=== PATIENT | male | born 2000 | race Caucasian/White ===

== ENCOUNTER 2024-09-13 14:31 | Emergency (ER) | payer OTHER, BC, SELFPAY ==
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
[2024-09-13 14:58] VITALS: BP 146/68; PULSE 99; RESP 16; TEMP 36.4; O2SAT 100
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
--- OUTSIDE RECORDS SUMMARY | 2024-09-13 17:46 | XMS_ITS | Continuity of Care Document ---
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 Name Role Phone Malik Mercado MD Unavailable Unavailable Medications Medication Instructions Dosage Effective Dates (start - stop) Status Comments TYLENOL 160MG/5MLELIXIR surgery 11/30 - Active Procedures Procedure Date Office/outpatient visit,[facility] 2007 X-ray exam of forearm, 2[facility] 8 X-ray exam of forearm, 2views 8 Office/outpatient visit,[facility] 2007 X-ray exam of forearm, [facility] 8 Clsd trtmnt rdl/ulna Fx w/manip 008 Advance Directives Directive Yes / No Effective Date File Name No Information Encounters Encounter Description Practice Location Reason(s) For Visit Diagnoses Date Provider Providers Copied on Encounter [facility], [address] [place] [address], [id number], tel:[phone] [facility] No Information 8 Rogelio Gan. [address], [place], [id number] , [place]. tel:[phone] Referring Provider: Candido Castillo, [address] [place] [address], [place], [address]. tel:[phone] Office/outpat ient visit,[facility], [address] [place] [address], [id number], tel:[phone] [facility] No Information 8 Rogelio Malik. [address] [place] [address], [id number] , [place]. tel:[phone] Referring Provider: Candido Castillo, [address] [place] [address], [id number]. tel:[phone] [facility], [address] [place] [address], [id number], tel:[phone] [facility] No Information 8 Rogelio Guzmánen. [address] [place] [address], [id number] , [place]. tel:[phone] Referring Provider: Candido Castillo, [address] [place] [address], [id number]. tel:[phone] [facility], [address] [place] [address], [id number], tel:[phone] [facility] No Information 8 Trent Delgado. [address] [place] [address], [id number] , [place]. tel:[phone] Referring Provider: Candido Castillo, [address] [place] [address], [place], [address]. tel:[phone] [facility], [address] [place] [address], [id number], tel:[phone] [facility] No Information 8 Rogelio Gan. [address] [place] [address], [id number] , [place]. tel:[phone] Referring Provider: Candido Castillo, [address] [place] [address], [id number]. tel:[phone] Office/outpat ient visit,new, [facility], [address] [place] [address], [id number], tel:[phone] [facility] No Information 8 Anil Silva. [address] [place] [address], [id number], [place]. tel:[phone] Referring Provider: Candido Castillo, [address] [place] [address], [id number]. tel:[phone] [facility], [address] [place] [address], [id number], tel:[phone] [facility] No Information 8 Anil Silva. [address] [place] [address], [id number], . [phone] Referring Provider: Candido Castillo, [address] [place] [address], [id number]. tel:[phone] [facility], [address] [place] [address], [id number], [phone] [facility] No Information 8 Rogelio Malik. [address] [place] [address], [id number] , . tel:[phone] Family History Family Member Type Diagnosis Age At Onset No Information Payers Payer name Insurance type Covered libertarian ID Bhavana pearce(s) IDPA [id number] Social History Type Description Quantity Date Captured Comments Sex Male Smoking Status No Information Chief Complaint And Reason For Visit No Information Reason For Referral Reason For Referral No Information History Of Present Illness Encounter Date Complaint History Of Prese nt Illness No Information Functional Status Date Functional Assessmen t No Information Instructions Date Instruction Additional Infor mation No Information Assessments Type Assessment Date No Information Patient Care Teams Name Effective Dates (start - stop) Status Members No Information
== END 2024-09-13 18:02 | disposition home or self-care (01) ==
LOC: ANHED 17:45
PROVIDERS: Emergency Provider Physician Assistant
DX: S19.9XXA Unspecified injury of neck, initial encounter (principal); R51.9 Headache, unspecified; V43.52XA Car driver injured in collision with other type car in traffic accident, initial encounter
CPT/HCPCS: 70450; 72125; 99284